=== PATIENT | female | born 1955 | race Caucasian/White ===

== ENCOUNTER → 2017-02-18 | Outpatient (CLI) | payer BC, OTHER ==
--- NOTE | 2017-02-18 15:04 | RAD ---
DATE: February 18, 2017 EXAM: DIGITAL SCREEN BILAT W/CAD HISTORY: Routine screening. COMPARISON: Studies back to February 08, 2014. TECHNIQUE: 2D digital CC and MLO views of each breast were obtained. All 4 views were repeated. This study was interpreted with the benefit of Computerized Aided Detection (CAD). FINDINGS: The breast parenchyma demonstrates scattered fibroglandular densities, category B. Post therapeutic changes in the outer deep right breast are stable. Probable intraparenchymal lymph nodes in the left breast are stable. There is no worrisome mass or area of architectural distortion. There are a few benign-appearing calcifications. There are no suspicious groupings of microcalcifications IMPRESSION: Stable mammogram with benign findings. BI-RADS CATEGORY: 2 BENIGN FINDING RECOMMENDED FOLLOW-UP: 12M 12 MONTH FOLLOW-UP PQRS compliance statement: Patient information was entered into a reminder system with a target due date for the next mammogram. Mammography is a sensitive method for finding small breast cancers, but it does not detect them all and is not a substitute for careful clinical examination. A negative mammogram does not negate a clinically suspicious finding and should not result in delay in biopsying a clinically suspicious abnormality. "Our facility is accredited by the [employer] Mammography Program."
== END | disposition home or self-care (01) ==
LOC: MAMMO 13:48
PROVIDERS: ATTEND Family Medicine
DX: Z12.31 Encounter for screening mammogram for malignant neoplasm of breast (principal)
CPT/HCPCS: G0202; 77067

== ENCOUNTER → 2018-02-20 | Outpatient (CLI) | payer OTHER ==
--- NOTE | 2018-02-21 08:35 | RAD ---
DATE: 02/20/2018 4:00 PM EXAM: MAMMO OBIE SCREENING BILATERAL HISTORY: routine screening evaluation. COMPARISON: Prior mammographic imaging dating back to 02/02/2012 Bilateral CC and MLO views of the breasts were performed. Bilateral breast tomosynthesis was performed in CC and MLO projections. This study was interpreted with the benefit of Computerized Aided Detection (CAD ). Breast Density: The breast parenchyma FINDINGS: Lumpectomy changes are again seen within the right breast. The parenchymal pattern appears stable. A skin marker overlies the right breast denoting the nipple. No suspicious masses, microcalcifications or architectural distortion is present to suggest malignancy in either breast. The visualized axillae are unremarkable. IMPRESSION: No mammographic evidence of malignancy. BI-RADS CATEGORY: 2 BENIGN FINDING(S) RECOMMENDED FOLLOW-UP: 12M 12 MONTH FOLLOW-UP Annual screening mammography is recommended, unless clinically indicated sooner based on symptoms or change in physical exam. PQRS compliance statement: Patient information was entered into a reminder system with a target due date 02/20/2019 for the next mammogram. Mammography is a sensitive method for finding small breast cancers, but it does not detect them all and is not a substitute for careful clinical examination. A negative mammogram does not negate a clinically suspicious finding and should not result in delay in biopsying a clinically suspicious abnormality. "Our facility is accredited by the [employer]ammography [employer]." BEED
== END | disposition home or self-care (01) ==
LOC: MAMMO 13:47
PROVIDERS: ATTEND Family Medicine
DX: Z12.31 Encounter for screening mammogram for malignant neoplasm of breast (principal)
CPT/HCPCS: 77063; 77067

== ENCOUNTER → 2019-02-22 | Outpatient (CLI) | payer OTHER ==
--- NOTE | 2019-02-23 12:18 | RAD ---
DATE: February 22, 2019 EXAM: DIGITAL SCREEN BILAT W/CAD HISTORY: History of right breast cancer treated with lumpectomy and radiation therapy in 2009. COMPARISON: 2015 through 2017 This study was interpreted with the benefit of Computerized Aided Detection (CAD). 2-D digital mammographic views of both breasts were performed in the CC and MLO projections. 3-D digital tomosynthesis images of both breasts were performed in the CC and MLO projections and reviewed on a computer workstation. FINDINGS: Breast Density: FATTY The breast parenchyma is primarily fatty replaced. Breast parenchyma level density A.. Postoperative changes of the right breast are seen. The right breast is stable. Nodularity of the upper-outer quadrant of the left breast is stable. There are no new dominant suspicious masses, suspicious microcalcifications or evidence of architectural distortion. IMPRESSION: No mammographic indicators for new or recurrent malignancy. BI-RADS CATEGORY: 2 BENIGN FINDING RECOMMENDED FOLLOW-UP: 12M 12 MONTH FOLLOW-UP PQRS compliance statement: Patient information was entered into a reminder system with a target due date February 24, 2020 for the next mammogram. Mammography is a sensitive method for finding small breast cancers, but it does not detect them all and is not a substitute for careful clinical examination. A negative mammogram does not negate a clinically suspicious finding and should not result in delay in biopsying a clinically suspicious abnormality. "Our facility is accredited by the [employer] Mammography Program." The patient's breast density may affect the ability of mammography to detect breast cancer. There are 4 categories of breast density, A, B, C and D. Breast density A means that most of the breast tissue is replaced with adipose tissue and therefore is not dense. Breast density B means that the breast tissue is mildly dense and scattered. Breast density C means that the breast tissue is heterogeneously dense. Breast density D means that the breast tissue is very dense. Breast densities especially C and D may decrease the sensitivity of mammography to detect breast cancer. Therefore, the patient may benefit from 3-D breast mammography (3D breast tomography) as a part of their screening mammogram. Insurance may or may not pay for this additional imaging. The patient's breast density based on today's mammogram is category A.
== END | disposition home or self-care (01) ==
LOC: MAMMO 14:34
PROVIDERS: ATTEND Family Medicine
DX: Z12.31 Encounter for screening mammogram for malignant neoplasm of breast (principal); Z85.3 Personal history of malignant neoplasm of breast
CPT/HCPCS: 77067

== ENCOUNTER → 2019-09-06 | Outpatient (CLI) | payer MEDICARE ==
--- NOTE | 2019-09-06 13:24 | KCIC ---
EXAM: DUAL ENERGY X-RAY ABSORPTIOMETRY (DEXA). HISTORY: Postmenopausal screening. FINDINGS: The lowest measured T-score is -0.8 in the left proximal femur, based on a bone mineral density of 0.850 g/cm^2. Refer to the worksheets for full detail. In comparison with the prior study of 04/21/2012, average bone mineral density at the lumbar spine has changed +11.2%, while the average density at the left hip has changed -10.1%. IMPRESSION: Normal. Bone mineral density yields a T-score of -1.0 or greater. Fracture risk is low. FRAX was not calculated. METHODOLOGY: Dual energy x-ray absorptiometry was performed to measure bone mineral density. The following analysis is based on the 2019 Official Positions of the International Society for Clinical Densitometry: Measurements of the hips and the average of L1-L4 are preferred. When the spine and/or hip cannot be feasibly measured or interpreted, or in the setting of hyperparathyroidism, distal radial bone mineral density may be measured. The lumbar spine T-score is based on the average bone mineral density of L1-L4. In the setting of artifact or anatomic abnormality, some lumbar levels may be excluded, and the remaining levels used for calculation. A single lumbar level is not used for diagnosis, and if only a single level is available for assessment, another anatomic site will be used to assign a diagnosis. The hip T-score is based on the bone mineral density measurement of the femoral neck or total proximal femur of either side, whichever is lowest. Bilateral mean values are not used for diagnosis. The forearm T-score is derived from 33% of the distal radius of the nondominant forearm. For postmenopausal and perimenopausal women, and men age 50 or older, of all ethnic groups, T-scores are calculated through comparison of the current measurement with the NHANES III database standard for females aged 20-29 years. The lowest T-score of the evaluated anatomic sites is used to assign a diagnosis based on the World Health Organization densitometric classification. In premenopausal females and males younger than age 50, a Z-score is calculated based on population specific reference data for patient sex and self-reported ethnicity. Electronically signed by: Syed Dominguez MD (09/06/2019 1:21 PM) [facility]
== END ==
LOC: KCIC DEXA 10:55
PROVIDERS: ATTEND Family Medicine
DX: Z13.820 Encounter for screening for osteoporosis (principal)
CPT/HCPCS: 77080

== ENCOUNTER → 2020-02-25 | Outpatient (CLI) | payer MEDICARE ==
--- NOTE | 2020-02-25 16:02 | RAD ---
DATE: 02/25/2020 1:53 PM EXAM: MAMMO OBIE SCREENING BILATERAL HISTORY: Screening . Personal history of right lumpectomy with radiation COMPARISON: 02/22/2019, 02/20/2018. Bilateral CC and MLO views of the breasts were performed. Bilateral breast tomosynthesis was performed in CC and MLO projections. This study was interpreted with the benefit of Computerized Aided Detection (CAD). FINDINGS: Breast Density: FATTY The Breast Parenchyma is primarily fatty replaced. Breast parenchyma level density A. Stable benign postsurgical changes in the right breast. No suspicious masses, microcalcifications or unexpected architectural distortion is present to suggest malignancy in either breast. The visualized axillae are unremarkable. IMPRESSION: No mammographic evidence of malignancy. BI-RADS CATEGORY: 2 BENIGN FINDING(S) RECOMMENDED FOLLOW-UP: 12M 12 MONTH FOLLOW-UP Annual screening mammography is recommended, unless clinically indicated sooner based on symptoms or change in physical exam. PQRS compliance statement: Patient information was entered into a reminder system with a target due date for the next mammogram. Mammography is a sensitive method for finding small breast cancers, but it does not detect them all and is not a substitute for careful clinical examination. A negative mammogram does not negate a clinically suspicious finding and should not result in delay in biopsying a clinically suspicious abnormality. "Our facility is accredited by the [employer] Mammography Program."
== END ==
LOC: MAMMO 13:45
PROVIDERS: ATTEND Family Medicine
DX: Z12.31 Encounter for screening mammogram for malignant neoplasm of breast (principal); Z90.11 Acquired absence of right breast and nipple
CPT/HCPCS: 77063; 77067

== ENCOUNTER → 2020-04-03 | Outpatient (CLI) | payer MEDICARE ==
[~2020-04-03] MED LIST: ALPR0.254 PO; CITA20TA6 PO; MELO15TA23 PO; PRAV40TA2 PO; ZOLP10TA PO
--- NOTE | 2020-04-03 15:34 | KCIC ---
MRI of the lumbar spine without comparison for spinal stenosis of the lumbar region, difficulty stand ing up straight, pain across lower lumbar levels for years. TECHNIQUE: Multiplanar multisequence imaging of the lumbar spine is performed. FINDINGS: There is a degenerative rotolevoscoliosis of the thoracal lumbar junction. Spinal cord term inates at L1. No signal abnormalities are seen within the spinal cord. No significant marrow abnormal ities are evident. No significant abnormalities of the visualized soft tissues. Incidentally noted is 1.4 cm poorly marginated lesion within the right sacral alae seen best on the axial images, which is low signal intensity relative to bone on both T1 and T2-weighted imaging, but high signal intensity on both sequences relative to muscle, and has increased signal intensity on T2-weighted images relati ve T1-weighted imaging. This abnormality is incompletely characterized with these 2 isolated sequence s. This could reflect a benign lesion such as a bone island, atypical hemangioma, or sacral stress re action. Neoplastic process cannot be excluded however. There is grade 1 anterolisthesis of L4 on L5. At T11-12, there is a mild right paracentral disc bulge with no evidence of significant central canal stenosis or neural foraminal narrowing. Moderate facet arthrosis on the left. At T12-L1, there is mild fusiform disc bulge, with no evidence of central canal stenosis or neurofora bubba narrowing. Mild facet arthrosis and ligamentum flavum hypertrophy. At L1-2, there is moderate narrowing of the intervertebral disc, along with a fusiform disc osteophyt e complex with a right paracentral and lateral recess predominance, resulting in severe narrowing of the right neural foramen, with preserved patency of the left foramen. There is mild facet arthrosis a nd ligamentum flavum hypertrophy. Mild effacement of the right anterior thecal sac. At L2-3, there is severe degenerative disc disease with near complete obliteration of the right hemid isc with advanced endplate changes involving the right hemivertebral bodies. There is a fusiform disc osteophyte complex, with moderate narrowing of the right neural foramen and abutment of the exiting nerve root in the far lateral space. There is mild narrowing of the left neural foramen. Once again t here is effacement of the thecal sac without definite canal stenosis. There is moderate facet arthros is and ligamentum flavum hypertrophy. At L3-4, there is a fusiform disc osteophyte complex with effacement of the thecal sac and mild narro wing of the neural foramina bilaterally. Bulky facet arthrosis and moderate ligamentum flavum hypertr ophy. At L4-5, there is grade 1 anterolisthesis, and there is a fusiform disc osteophyte complex which resu lts in severe narrowing of the right neural foramen and mild narrowing of the left neural foramen. Th ere is also bulky facet arthrosis particularly on the right, but also to a lesser extent in the left, and these findings produce moderate central canal stenosis. At L5-S1, there is a fusiform disc bulge which mildly effaces the thecal sac. No central canal stenos is or neuroforaminal narrowing. Moderate facet arthrosis and no significant ligamentum flavum hypertr ophy. IMPRESSION: 1. Severe multilevel degenerative changes of lumbar spine as described above. Findings are most signi ficant at L2-3 with severe disc degeneration and moderate right neural foraminal narrowing and L4-5 w ith moderate canal stenosis and severe right neural foraminal narrowing. 2. 1.4 cm right sacral bone lesion which is incompletely characterized across these limited T1 and T2 -weighted sequences, and is not included on the sagittal series. Considerations include benign etiolo gies such as bone island, atypical hemangioma, or sacral stress reaction, as well as neoplastic etiol ogies. Further evaluation is recommended, and could include noncontrast CT scan of the pelvis, or con trast-enhanced MRI of the sacrum to include STIR, chemical shift, and diffusion-weighted imaging, or both. Electronically signed by: Artemio Hernandez MD (04/03/2020 3:32 PM) [id number]
== END ==
LOC: KCIC MRI 13:00
PROVIDERS: ATTEND Family Medicine
DX: M47.816 Spondylosis without myelopathy or radiculopathy, lumbar region (principal); M43.16 Spondylolisthesis, lumbar region; M48.061 Spinal stenosis, lumbar region without neurogenic claudication
CPT/HCPCS: 72148

== ENCOUNTER 2020-04-10 21:00 | Inpatient (IN) | payer MEDICARE ==
[~2020-04-10] VITALS: Ht 152.4 cm; Wt 72.0 kg
[2020-04-10] MEDS ORDERED: MORPHINE SULFATE 10 MG/ML VIAL. IV ONE ×2 (21:45→23:30)
[2020-04-10] MEDS ORDERED: ONDANSETRON PF 4 MG/2 ML VIAL. IVP ONE (21:45)
[2020-04-10] MEDS ORDERED: IV NORMAL SALINE 1000ML BAG 1,000 ML IV ONE (21:45)
[2020-04-10 22:22] LABS: BASO % 0 % (0-3); EOS % 0 % (0-3); HEMATOCRIT 41.7 % (36.0-47.0); HEMOGLOBIN 14.3 g/dL (12.0-15.5); LYMPH # 0.7 x10^3/uL (1.0-4.8); LYMPH % 9 % (24-48); MEAN CORPUSCULAR HEMOGLOBIN 32 pg (25-35); MEAN CORPUSCULAR HGB CONC 34 g/dL (31-37); MEAN CORPUSCULAR VOLUME 92 fL (79-100); MONO # 0.1 x10^3/uL (0.0-1.1); MONO % 2 % (0-9); NEUT # 6.6 x10^3/uL (1.8-7.7); NEUT % 88 % (31-73); PLATELET COUNT 294 x10^3/uL (140-400); RED BLOOD COUNT 4.51 x10^6/uL (3.50-5.40); WHITE BLOOD COUNT 7.4 x10^3/uL (4.0-11.0)
[2020-04-10 22:30] LABS: CALCIUM 9.6 mg/dL (8.5-10.1); CREATININE 0.7 mg/dL (0.6-1.0); POTASSIUM 3.5 mmol/L (3.5-5.1)
[2020-04-10 22:36] LABS: ALBUMIN 3.8 g/dL (3.4-5.0); ALBUMIN/GLOBULIN RATIO 1.1 (1.0-1.7); TOTAL BILIRUBIN 0.7 mg/dL (0.2-1.0); TOTAL PROTEIN 7.3 g/dL (6.4-8.2)
[2020-04-10 22:56] LABS: BILIRUBIN,URINE NEGATIVE (NEG); CLARITY,URINE CLOUDY; COLOR,URINE YELLOW; NITRITE,URINE NEGATIVE (NEG); PH,URINE 8.5 (<5.0-8.0); PROTEIN,URINE NEGATIVE (NEG-TRACE); UROBILINOGEN,URINE 0.2 mg/dL (0.2 mg/dL)
[2020-04-10] MEDS ORDERED: CONTRAST GIVEN. MC PRN (23:00)
[2020-04-10] MEDS ORDERED: IOHEXOL 240 MG/ML 50ML VIAL. PO ONE (23:00)
[2020-04-10] MEDS ORDERED: IOHEXOL 300 MG/ML 100ML VIAL. IV ONE (23:00)
[2020-04-10 23:05] LABS: BACTERIA,URINE 0 /HPF (0-FEW); HYALINE CASTS, URINE OCCASIONAL /HPF; RBC,URINE 0 /HPF (0-2); WBC,URINE 0 /HPF (0-4)
--- NOTE | 2020-04-10 23:50 | RAD ---
INDICATION: Reason: abdominal pain, elderly / Spl. Instructions: [id number], WILL DRINK CONTRAST AF TER NAUSEA MEDS / History: . COMPARISON: None. TECHNIQUE: Axial CT images obtained through the abdomen and pelvis with contrast. One or more of the following individualized dose reduction techniques were utilized for this examinat ion: 1. Automated exposure control; 2. Adjustment of the mA and/or kV according to patient size; 3 . Use of iterative reconstruction technique. FINDINGS: Calcified granulomas at lung bases. Soft tissue density with central lower density component at the right breast measuring 33 x 20 mm. Moderate calcific atherosclerosis. There is suspected prolapse of the urinary bladder inferiorly. There is some free fluid seen within the abdomen. This includes adjacent to liver. Low-density adjacent to the falciform ligament which can be seen with focal fat. No peripancreatic fluid collection. Splenic calcified granulomas. Subcentimeter low-density bilateral renal lesion. No hydronephrosis. Free fluid within the pelvis. Dilated loops of small bowel are identified which are fluid-filled with adjacent mesenteric edema. Th ere are 2 transition points with one within the lower pelvis and the other within the upper pelvis ju st to left of midline. Wire thickening of the small bowel at the transition points. Degenerative changes the spine with scoliotic curvature as well as multilevel central canal and neura l foraminal stenosis. Small fat-containing umbilical hernia. Anterolisthesis of L4 on 5. IMPRESSION: * Dilated small bowel loops are identified with adjacent mesenteric edema which can be seen with sma ll bowel obstruction. Given the edema and regions of wall thickening this appears high grade and give n that there is 2 transition points a closed-loop is within the differential. There is some free flui d seen as well as possible subcapsular fluid at the liver. * Soft tissue density with central low density component at the right breast. This could be related to the patient's surgery but is better evaluated on mammogram. Please see recently obtained mammogram report for better evaluation of the right breast * Prolapse of urinary bladder inferiorly. Electronically signed by: Salvador Stevenson MD (04/10/2020 11:48 PM) [id number]
[2020-04-11] MEDS ORDERED: PIPERACILLIN/TAZOBACTAM 3.375 GM in IV NORMAL SALINE 50ML 50 ML IV ONE
--- NOTE | 2020-04-11 00:23 | ED.ADGEN ---
Past Medical History Past Medical History: Arthritis, Cancer, Depression, Other Additional Past Medical Histor: BREAST CA Past Surgical History: Cancer Surgery, Hysterectomy Smoking Status: Never Smoker Alcohol Use: None General Adult EDM: Chief Complaint: ABDOMINAL PAIN HPI: HPI: Patient is 64-year-old female who presents to the emergency room complaining of 24 hours of mid abdominal pain that goes into her lower abdomen. She states that this is been constant since onset. She has had nausea and vomiting associated with it. She started having chills earlier this evening but has not had any fevers. She has not been able to keep anything she eats or drinks down. She denies any diarrhea or constipation. She is never had pain like this previously. She had a hysterectomy but no other abdominal surgeries. She states the pain feels like a dull aching pain. It is currently a 10 out of 10. It is worse with eating or drinking. Not worse with palpitation or movement. Review of Systems: Review of Systems: Complete ROS is negative unless otherwise documented in HPI Current Medications: Current Medications Medications (Trade) Dose Ordered Sig/Guy Start Time Stop Time Status Last Admin Dose Admin Info (CONTRAST GIVEN -- Rx MONITORING) 1 each PRN DAILY PRN 04/10/20 23:00 04/12/20 22:59 Iohexol (Omnipaque 240 Mg/ml) 30 ml 1X ONCE 04/10/20 23:00 04/10/20 23:01 DC 04/10/20 23:25 30 ML Iohexol (Omnipaque 300 Mg/ml) 75 ml 1X ONCE 04/10/20 23:00 04/10/20 23:01 DC 04/10/20 23:25 75 ML Morphine Sulfate (Morphine Sulfate) 5 mg 1X ONCE 04/10/20 23:30 04/10/20 23:31 DC 04/10/20 23:37 5 MG Ondansetron HCl (Zofran) 4 mg 1X ONCE 04/10/20 21:45 04/10/20 21:46 DC 04/10/20 22:05 4 MG Sodium Chloride 1,000 ml @ 0 mls/hr Q0M ONCE 04/10/20 21:45 04/10/20 21:46 DC 04/10/20 22:04 999 MLS/HR Allergies: Allergies: Allergies Coded Allergies Type Severity Reaction Last Updated Verified No Known Drug Allergies 04/10/20 No Physical Exam: PE: General: Awake, alert, NAD. Well Nourished, well hydrated. Cooperative HEENT: Atraumatic, EOMI, PERRL, airway patent, moist oral mucosa Neck: Supple, trachea midline Respiratory: CTA bilaterally, normal effort, no wheezing/crackles CV: RRR, no murmur, cap refill <2 GI: Soft, distended, minimally tender MSK: No obvious deformities Skin: Warm, dry, intact Neuro: A&O x3, speech NL, sensory and motor grossly intact, no focal deficits Psych: Normal affect, normal mood, not suicidal or homicidal Current Patient Data: Labs: Laboratory Tests Test 04/10/20 21:55 04/10/20 22:40 White Blood Count 7.4 x10^3/uL (4.0-11.0) Red Blood Count 4.51 x10^6/uL (3.50-5.40) Hemoglobin 14.3 g/dL (12.0-15.5) Hematocrit 41.7 % (36.0-47.0) Mean Corpuscular Volume 92 fL (79-100) Mean Corpuscular Hemoglobin 32 pg (25-35) Mean Corpuscular Hemoglobin Concent 34 g/dL (31-37) Red Cell Distribution Width 13.0 % (11.5-14.5) Platelet Count 294 x10^3/uL (140-400) Neutrophils (%) (Auto) 88 % (31-73) H Lymphocytes (%) (Auto) 9 % (24-48) L Monocytes (%) (Auto) 2 % (0-9) Eosinophils (%) (Auto) 0 % (0-3) Basophils (%) (Auto) 0 % (0-3) Neutrophils # (Auto) 6.6 x10^3/uL (1.8-7.7) Lymphocytes # (Auto) 0.7 x10^3/uL (1.0-4.8) L Monocytes # (Auto) 0.1 x10^3/uL (0.0-1.1) Eosinophils # (Auto) 0.0 x10^3/uL (0.0-0.7) Basophils # (Auto) 0.0 x10^3/uL (0.0-0.2) Platelet Estimate Pending Sodium Level 137 mmol/L (136-145) Potassium Level 3.5 mmol/L (3.5-5.1) Chloride Level 100 mmol/L (98-107) Carbon Dioxide Level 27 mmol/L (21-32) Anion Gap 10 (6-14) Blood Urea Nitrogen 14 mg/dL (7-20) Creatinine 0.7 mg/dL (0.6-1.0) Estimated GFR (Cockcroft-Gault) 84.0 BUN/Creatinine Ratio 20 (6-20) Glucose Level 133 mg/dL (70-99) H Calcium Level 9.6 mg/dL (8.5-10.1) Total Bilirubin 0.7 mg/dL (0.2-1.0) Aspartate Amino Transferase (AST) 29 U/L (15-37) Alanine Aminotransferase (ALT) 25 U/L (14-59) Alkaline Phosphatase 60 U/L (46-116) Total Protein 7.3 g/dL (6.4-8.2) Albumin 3.8 g/dL (3.4-5.0) Albumin/Globulin Ratio 1.1 (1.0-1.7) Lipase 43 U/L (73-393) L Urine Collection Type Unknown Urine Color Yellow Urine Clarity Cloudy Urine pH 8.5 (<5.0-8.0) Urine Specific [place] 1.010 (1.000-1.030) Urine Protein Negative mg/dL (NEG-TRACE) Urine Glucose (UA) Negative mg/dL (NEG) Urine Ketones (Stick) 40 mg/dL (NEG) Urine Blood Negative (NEG) Urine Nitrite Negative (NEG) Urine Bilirubin Negative (NEG) Urine Urobilinogen Dipstick 0.2 mg/dL (0.2 mg/dL) Urine Leukocyte Esterase Negative (NEG) Urine RBC 0 /HPF (0-2) Urine WBC 0 /HPF (0-4) Urine Squamous Epithelial Cells Few /LPF Urine Bacteria 0 /HPF (0-FEW) Urine Hyaline Casts Occasional /HPF Urine Mucus Mod /LPF Laboratory Tests 04/10/20 21:55 Laboratory Tests 04/10/20 21:55 Vital Signs: Vital Signs Date Time Temp Pulse Resp B/P (MAP) Pulse Ox O2 Delivery O2 Flow Rate FiO2 04/10/20 21:15 97.5 68 22 178/79 (112) 97 Room Air 97.5 EKG: EKG: [] Heart Score: Risk Factors: Risk Factors: DM, Current or recent (<one month) smoker, HTN, HLP, family history of CAD, obesity. Risk Scores: Score 0 - 3: 2.5% MACE over next 6 weeks - Discharge Home Score 4 - 6: 20.3% MACE over next 6 weeks - Admit for Clinical Observation Score 7 - 10: 72.7% MACE over next 6 weeks - Early Invasive Strategies Radiology/Procedures: Radiology/Procedures: [] Course & Med Decision Making: Course & Med Decision Making Pertinent Labs and Imaging studies reviewed. (See chart for details) Patient is a 64 year-old female with a history of breast cancer in remission who presents to the Emergency Room complaining of abdominal pain with nausea vomiting. On exam, patient appears to be uncomfortable and has a tender abdomen. Due to patients history, age, and exam work up will need to be done to evaluate for intra-abdominal pathology. Work up ordered includes CBC, CMP, lipase, UA, CT abdomen and pelvis. Patient's pain does not epigastric and a cardiac evaluation will not be needed for atypical pain. Ddx includes colitis, diverticulitis, appendicitis, cholecystitis, pancreatitis, small bowel obstruction, large bowel obstruction, perforated bowel, AAA. Bedside ultrasound was performed by myself to evaluate for possible AAA and aorta appears to be normal on my quick examination. Work up was reviewed and patient has a small bowel obstruction with a possible closed-loop obstruction. Given these results the on-call surgeon was paged. Lactic was added. 0001: Dr Ngo paged after CT a/p results were reviewed 0003: Discussed case with Dr Ngo. Will place NG and do rapid COVID swab. 0010: Attempted to page Dr Fu. Phone line is down. Called house painter helper to see if they have an alternative way of contacting Dr Fu and no other phone numbers were available. 0017: Called Dr Nickie Mccollum's back up, who is willing to accept admission. Silvia Disclaimer: Silvia Disclaimer: This electronic medical record was generated, in whole or in part, using a voice recognition dictation system. Departure Departure Impression: Primary Impression: Small bowel obstruction Disposition: ADMITTED INPT THIS HOSP Condition: STABLE Referrals: JESUS FU MD (PCP) EDMOND JOHN MD Apr 11, 2020 00:23
[2020-04-11] MEDS: IV NORMAL SALINE 1000ML BAG 1,000 ML IV SCH ×3 (00:44→16:51)
[2020-04-11] MEDS ORDERED: BENZOCAINE ONE 20% MUCOSAL SPRAY. MM ×2 (00:45→01:30)
[2020-04-11] MEDS ORDERED: ONDANSETRON PF 4 MG/2 ML VIAL. IV PRN (00:45)
[2020-04-11] MEDS: HYDROmorphone 2 MG/ML VIAL IVP PRN ×4 (00:54→19:34)
--- NOTE | 2020-04-11 02:38 | RAD ---
AP abdomen x-ray HISTORY: Nasogastric tube placement. FINDINGS: Lung bases unremarkable. No dilated bowel loops at the upper abdomen evident. Excreted cont rast density kidneys noted. Nasogastric tube tip left upper quadrant general radiographic region of t he upper stomach. Bones unremarkable. IMPRESSION: Nasogastric intubation as described above. Electronically signed by: Reinaldo Adams MD (04/11/2020 2:35 AM) [facility]
[2020-04-11 03:10] VITALS: BP 131/76
[2020-04-11] MEDS ORDERED: ALPR0.254 PO (03:44)
[2020-04-11] MEDS ORDERED: MELO15TA23 PO (03:44)
[2020-04-11] MEDS ORDERED: ZOLP10TA PO (03:44)
[2020-04-11] MEDS ORDERED: CITA20TA6 PO (03:44)
[2020-04-11] MEDS ORDERED: PRAV40TA2 PO (03:44)
[2020-04-11] MEDS: PHENOL ORAL SPRAY 177ML BOTTLE. PO PRN ×2 (04:20→09:14)
[2020-04-11 04:21] LABS: % BANDS 1 % (0-9); % LYMPHS 10 % (24-48); % MONOS 1 % (0-10); % SEGS 88 % (35-66); PLT ESTIMATE ADEQUATE (ADEQUATE)
[2020-04-11 07:00] VITALS: BP 105/50
--- NOTE | 2020-04-11 08:48 | PDOC2 ---
CHARLEY UMAÑA UPPER STITCHER 04/11/20 0848: CONSULT Date of Consult Date of Consult DATE: 04/11/20 TIME: 08:43 Reason for Consult Reason for Consult: sbo Referring Physician Referring Physician: ER Identification/Chief Complaint Chief Complaint abdominal pain Source Source: Chart review, Patient History of Present Illness Reason for Visit: Admitted with acute onset of abdominal pain yesterday. Progressively worsened, developed vomiting. One loose stool yesterday AM. NO flatus, pain improved, but still present and requiring medication Past Medical History Heme/Onc: Cancer (breast ) Psych: Anxiety, Depression Past Surgical History Past Surgical History: Hysterectomy, Other (lumpectomy) Family History Family History: Other (noncontributory to current illness ) Social History No ALCOHOL: none Drugs: None Lives: Alone Current Problem List Problem List Problems Medical Problems: (1) Small bowel obstruction Status: Acute Current Medications Current Medications Current Medications Ondansetron HCl (Zofran) 4 mg 1X ONCE IVP Last administered on 04/10/20at 22:05; Start 04/10/20 at 21:45; Stop 04/10/20 at 21:46; Status DC Morphine Sulfate (Morphine Sulfate) 5 mg 1X ONCE IV Last administered on 04/10/20at 22:05; Start 04/10/20 at 21:45; Stop 04/10/20 at 21:46; Status DC Sodium Chloride 1,000 ml @ 0 mls/hr Q0M ONCE IV Last administered on 04/10/20at 22:04; Start 04/10/20 at 21:45; Stop 04/10/20 at 21:46; Status DC Iohexol (Omnipaque 240 Mg/ml) 30 ml 1X ONCE PO Last administered on 04/10/20at 23:25; Start 04/10/20 at 23:00; Stop 04/10/20 at 23:01; Status DC Iohexol (Omnipaque 300 Mg/ml) 75 ml 1X ONCE IV Last administered on 04/10/20at 23:25; Start 04/10/20 at 23:00; Stop 04/10/20 at 23:01; Status DC Info (CONTRAST GIVEN -- Rx MONITORING) 1 each PRN DAILY PRN MC SEE COMMENTS; Start 04/10/20 at 23:00; Stop 04/12/20 at 22:59 Morphine Sulfate (Morphine Sulfate) 5 mg 1X ONCE IV Last administered on 04/10/20at 23:37; Start 04/10/20 at 23:30; Stop 04/10/20 at 23:31; Status DC Piperacillin Sod/ Tazobactam Sod 3.375 gm/Sodium Chloride 50 ml @ 100 mls/hr 1X ONCE IV Last administered on 04/11/20at 00:44; Start 04/11/20 at 00:00; Stop 04/11/20 at 00:29; Status DC Ondansetron HCl (Zofran) 4 mg PRN Q8HRS PRN IV NAUSEA/VOMITING; Start 04/11/20 at 00:45; Stop 04/12/20 at 00:44 Sodium Chloride 1,000 ml @ 125 mls/hr Q8H IV Last administered on 04/11/20at 08:16; Start 04/11/20 at 00:45; Stop 04/12/20 at 00:44 Hydromorphone HCl (Dilaudid) 0.5 mg PRN Q4HRS PRN IVP SEVERE PAIN 7-10 Last ad ministered on 04/11/20at 08:28; Start 04/11/20 at 00:45 Benzocaine (Hurricaine One) 1 spray 1X ONCE MM Last administered on 04/11/20at 00:53; Start 04/11/20 at 00:45; Stop 04/11/20 at 00:46; Status DC Benzocaine (Hurricaine One) 1 spray 1X ONCE MM Last administered on 04/11/20at 01:28; Start 04/11/20 at 01:30; Stop 04/11/20 at 01:31; Status DC Phenol (Chloraseptic) 1 spray PRN Q2HR PRN PO SORE THROAT Last administered on 04/11/20at 04:20; Start 04/11/20 at 03:15 Active Scripts Active Reported Alprazolam 0.25 Mg Tablet 1 Tab PO DAILY Pravastatin Sodium 40 Mg Tablet 1 Tab PO QHS Citalopram Hbr (Citalopram Hydrobromide) 20 Mg Tablet 1 Tab PO DAILY Ambien (Zolpidem Tartrate) 10 Mg Tablet 0.5 Tab PO PRN QHS PRN Meloxicam 15 Mg Tablet 1 Tab PO DAILY Allergies Allergies: Coded Allergies: No Known Drug Allergies (Unverified , 04/10/20) ROS General: YES: Chills; No: Other (fevers ) PSYCHOLOGICAL ROS: No: Anxiety, Depression Eyes: No Blurry vision, No Double vision HEENT: No: Heacaches, Sore Throat Hematological and Lymphatic: YES: Brusing; No: Bleeding Problems, Blood Clots Respiratory: No: Cough, Shortness of breath Cardiovascular: No Chest Pain, No Palpitations Gastrointestinal: Yes Other (see hpi) Genitourinary: No Dysuria, No Hematuria Musculoskeletal: No Joint Pain, No Muscle Pain Neurological: No Impaired Coord/balance, No Numbness/Tingling Skin: No Pruritus, No Rash Physical Exam General: Alert, Oriented X3, Cooperative HEENT: Atraumatic, Other (ng in place) Lungs: Clear to auscultation, Normal air movement Heart: Regular rate, Normal S1, Normal S2 Abdomen: Soft, No tenderness, Other (ND) Extremities: No clubbing, No cyanosis Skin: No rashes, No breakdown Neuro: Normal gait, Normal speech Psych/Mental Status: Mental status NL, Mood NL MUSCULOSKELETAL: No deformity, No swelling Vitals VITALS Vital Signs Date Time Temp Pulse Resp B/P (MAP) Pulse Ox O2 Delivery O2 Flow Rate FiO2 04/11/20 08:28 Room Air 04/11/20 07:00 98.7 69 17 105/50 (68) 93 98.7 Labs Labs Laboratory Tests Test 04/10/20 21:55 04/10/20 22:40 04/11/20 00:11 White Blood Count 7.4 x10^3/uL (4.0-11.0) Red Blood Count 4.51 x10^6/uL (3.50-5.40) Hemoglobin 14.3 g/dL (12.0-15.5) Hematocrit 41.7 % (36.0-47.0) Mean Corpuscular Volume 92 fL (79-100) Mean Corpuscular Hemoglobin 32 pg (25-35) Mean Corpuscular Hemoglobin Concent 34 g/dL (31-37) Red Cell Distribution Width 13.0 % (11.5-14.5) Platelet Count 294 x10^3/uL (140-400) Neutrophils (%) (Auto) 88 % (31-73) Lymphocytes (%) (Auto) 9 % (24-48) Monocytes (%) (Auto) 2 % (0-9) Eosinophils (%) (Auto) 0 % (0-3) Basophils (%) (Auto) 0 % (0-3) Neutrophils # (Auto) 6.6 x10^3/uL (1.8-7.7) Lymphocytes # (Auto) 0.7 x10^3/uL (1.0-4.8) Monocytes # (Auto) 0.1 x10^3/uL (0.0-1.1) Eosinophils # (Auto) 0.0 x10^3/uL (0.0-0.7) Basophils # (Auto) 0.0 x10^3/uL (0.0-0.2) Segmented Neutrophils % 88 % (35-66) Band Neutrophils % 1 % (0-9) Lymphocytes % 10 % (24-48) Monocytes % 1 % (0-10) Platelet Estimate Adequate (ADEQUATE) Sodium Level 137 mmol/L (136-145) Potassium Level 3.5 mmol/L (3.5-5.1) Chloride Level 100 mmol/L (98-107) Carbon Dioxide Level 27 mmol/L (21-32) Anion Gap 10 (6-14) Blood Urea Nitrogen 14 mg/dL (7-20) Creatinine 0.7 mg/dL (0.6-1.0) Estimated GFR (Cockcroft-Gault) 84.0 BUN/Creatinine Ratio 20 (6-20) Glucose Level 133 mg/dL (70-99) Lactic Acid Level 1.6 mmol/L (0.4-2.0) Calcium Level 9.6 mg/dL (8.5-10.1) Total Bilirubin 0.7 mg/dL (0.2-1.0) Aspartate Amino Transf (AST/SGOT) 29 U/L (15-37) Alanine Aminotransferase (ALT/SGPT) 25 U/L (14-59) Alkaline Phosphatase 60 U/L (46-116) Total Protein 7.3 g/dL (6.4-8.2) Albumin 3.8 g/dL (3.4-5.0) Albumin/Globulin Ratio 1.1 (1.0-1.7) Lipase 43 U/L (73-393) Urine Collection Type Unknown Urine Color Yellow Urine Clarity Cloudy Urine pH 8.5 (<5.0-8.0) Urine Specific [place] 1.010 (1.000-1.030) Urine Protein Negative mg/dL (NEG-TRACE) Urine Glucose (UA) Negative mg/dL (NEG) Urine Ketones (Stick) 40 mg/dL (NEG) Urine Blood Negative (NEG) Urine Nitrite Negative (NEG) Urine Bilirubin Negative (NEG) Urine Urobilinogen Dipstick 0.2 mg/dL (0.2 mg/dL) Urine Leukocyte Esterase Negative (NEG) Urine RBC 0 /HPF (0-2) Urine WBC 0 /HPF (0-4) Urine Squamous Epithelial Cells Few /LPF Urine Bacteria 0 /HPF (0-FEW) Urine Hyaline Casts Occasional /HPF Urine Mucus Mod /LPF SARS-CoV-2 Antigen (Rapid) Negative (NEGATIVE) Laboratory Tests Test 04/10/20 21:55 04/10/20 22:40 04/11/20 00:11 White Blood Count 7.4 x10^3/uL (4.0-11.0) Red Blood Count 4.51 x10^6/uL (3.50-5.40) Hemoglobin 14.3 g/dL (12.0-15.5) Hematocrit 41.7 % (36.0-47.0) Mean Corpuscular Volume 92 fL (79-100) Mean Corpuscular Hemoglobin 32 pg (25-35) Mean Corpuscular Hemoglobin Concent 34 g/dL (31-37) Red Cell Distribution Width 13.0 % (11.5-14.5) Platelet Count 294 x10^3/uL (140-400) Neutrophils (%) (Auto) 88 % (31-73) Lymphocytes (%) (Auto) 9 % (24-48) Monocytes (%) (Auto) 2 % (0-9) Eosinophils (%) (Auto) 0 % (0-3) Basophils (%) (Auto) 0 % (0-3) Neutrophils # (Auto) 6.6 x10^3/uL (1.8-7.7) Lymphocytes # (Auto) 0.7 x10^3/uL (1.0-4.8) Monocytes # (Auto) 0.1 x10^3/uL (0.0-1.1) Eosinophils # (Auto) 0.0 x10^3/uL (0.0-0.7) Basophils # (Auto) 0.0 x10^3/uL (0.0-0.2) Segmented Neutrophils % 88 % (35-66) Band Neutrophils % 1 % (0-9) Lymphocytes % 10 % (24-48) Monocytes % 1 % (0-10) Platelet Estimate Adequate (ADEQUATE) Sodium Level 137 mmol/L (136-145) Potassium Level 3.5 mmol/L (3.5-5.1) Chloride Level 100 mmol/L (98-107) Carbon Dioxide Level 27 mmol/L (21-32) Anion Gap 10 (6-14) Blood Urea Nitrogen 14 mg/dL (7-20) Creatinine 0.7 mg/dL (0.6-1.0) Estimated GFR (Cockcroft-Gault) 84.0 BUN/Creatinine Ratio 20 (6-20) Glucose Level 133 mg/dL (70-99) Lactic Acid Level 1.6 mmol/L (0.4-2.0) Calcium Level 9.6 mg/dL (8.5-10.1) Total Bilirubin 0.7 mg/dL (0.2-1.0) Aspartate Amino Transf (AST/SGOT) 29 U/L (15-37) Alanine Aminotransferase (ALT/SGPT) 25 U/L (14-59) Alkaline Phosphatase 60 U/L (46-116) Total Protein 7.3 g/dL (6.4-8.2) Albumin 3.8 g/dL (3.4-5.0) Albumin/Globulin Ratio 1.1 (1.0-1.7) Lipase 43 U/L (73-393) Urine Collection Type Unknown Urine Color Yellow Urine Clarity Cloudy Urine pH 8.5 (<5.0-8.0) Urine Specific [place] 1.010 (1.000-1.030) Urine Protein Negative mg/dL (NEG-TRACE) Urine Glucose (UA) Negative mg/dL (NEG) Urine Ketones (Stick) 40 mg/dL (NEG) Urine Blood Negative (NEG) Urine Nitrite Negative (NEG) Urine Bilirubin Negative (NEG) Urine Urobilinogen Dipstick 0.2 mg/dL (0.2 mg/dL) Urine Leukocyte Esterase Negative (NEG) Urine RBC 0 /HPF (0-2) Urine WBC 0 /HPF (0-4) Urine Squamous Epithelial Cells Few /LPF Urine Bacteria 0 /HPF (0-FEW) Urine Hyaline Casts Occasional /HPF Urine Mucus Mod /LPF SARS-CoV-2 Antigen (Rapid) Negative (NEGATIVE) Assessment/Plan Assessment/Plan SBO CT concern for possible closed loop obstruction will plan for SBFT ELYSE GALLARDO MD 04/11/20 0930: CONSULT Assessment/Plan Assessment/Plan Patient seen and examined by me currently resting fairly comfortably in bed denying pain. NG tube in place mostly clear nonbilious output. Abdomen is soft nondistended nontender to palpation. CT scan reviewed. Agree with Dumont assessment and plan for small bowel follow-through CHARLEY UMAÑA APRN Apr 11, 2020 08:48 ELYSE GALLARDO MD Apr 11, 2020 09:30
[2020-04-11] MEDS ORDERED: IOHEXOL 300 MG/ML 100ML VIAL. PO ONE (09:30)
--- NOTE | 2020-04-11 09:33 | NUR ---
SW following. Discussed with RN, pt from home, room air, NPO, rapid COVID-19 negative, NG tube. Plans for a small bowel follow through. RN advised no SW needs at this time. SW will continue to follow.
--- NOTE | 2020-04-11 09:38 | HP ---
ADMIT DATE: 04/11/2020 CHIEF COMPLAINT AND HISTORY OF PRESENT ILLNESS: This 64-year-old white female is well known to me from followup in the office. The patient developed abdominal pain on the morning of the . It was associated with nausea and vomiting. She eventually presented to the Emergency Room where she was found to have a high-grade small-bowel obstruction, admitted with NG tube placement. PAST MEDICAL HISTORY: Remarkable for prior breast cancer, arthritis and depression. PAST SURGICAL HISTORY: Remarkable for prior mastectomy and hysterectomy. MEDICATIONS: Brought with the patient, listed on computer and have been addressed. ALLERGIES: She has no known drug allergies. SOCIAL HISTORY: She is a lifetime nonsmoker, nondrinker, does not abuse drugs. , lives at home with her . FAMILY HISTORY: Noncontributory. REVIEW OF SYSTEMS: Remarkable for that as mentioned above. In addition, she has not had a bowel movement since this started. She denies any fevers, chills or hematemesis. PHYSICAL EXAMINATION: GENERAL: She is well-developed, well-nourished white female with NG in place and appears comfortable. She states she still has abdominal pain and has not passed any flatus or stool since admission. HEAD, EYES, EARS, NOSE AND THROAT: Unremarkable other than the NG tube. NECK: Supple without adenopathy or thyromegaly. CHEST: Clear to auscultation. HEART: Regular rate and rhythm without S3, S4 or murmur. ABDOMEN: Soft with some occasional rashes. EXTREMITIES: Without cyanosis, clubbing or edema. NEUROLOGIC: She is intact. LABORATORY DATA: Initial laboratory is remarkable for essentially normal CBC with a slight left shift. She had a blood sugar of 133 on her chem panel. Urinalysis is unremarkable. Rapid COVID testing is negative. IMAGING: Includes a KUB and abdominal pelvis CT showing small-bowel obstruction. IMPRESSION: 1. Small-bowel obstruction. 2. Other problems listed above. PLAN: Surgical consultation. We will observe at this point for hopefully spontaneous clearing of the same, but will need to be surgery available if needed a small bowel follow through ordered by Surgery this morning. We will be interesting to see what that shows. JESUS CASTILLO MD DR: LORRAINE/enrico JOB#: [id number] / [id number]
[2020-04-11 11:00] VITALS: BP 122/57
[2020-04-11 15:00] VITALS: BP 92/54
--- NOTE | 2020-04-11 16:41 | RAD ---
EXAM: SMALL BOWEL FOLLOW-THROUGH. HISTORY: Small bowel obstruction. COMPARISON: Abdomen pelvis CT with oral contrast of 04/10/2020. FINDINGS: A field reimbursement manager image was obtained. Water-soluble contrast material was administered via an indwell ing enteric tube and followed in its course through the stomach, small bowel and proximal colon with plain radiographs. 0 fluoroscopic images were obtained. Fluoroscopy time 0 seconds. The field reimbursement manager image demonstrates a some residual contrast in the collapsed urinary bladder. Residual wate r-soluble enteric contrast from the CT scan of the day prior is diffusely present in the small bowel. The administered enteric contrast gradually opacifies dilated small bowel loops with no opacification of the cecum identified after 2 hours of imaging. No strictures are seen. However no opacification o f large bowel was identified after 2 hours at which point, the study was terminated. IMPRESSION: 1. Small bowel obstruction with no opacification of large bowel after 2 hours following enteric contr ast administration. No evidence of bowel perforation. 2. Incidental urinary bladder prolapse. Electronically signed by: Linda Awad MD (04/11/2020 4:39 PM) [id number]
[2020-04-11 19:00] VITALS: BP 140/67
[2020-04-11 23:00] VITALS: BP 128/64
[2020-04-12] VITALS (13 sets, daily range): BP systolic 113–144; BP diastolic 50–68
[2020-04-12] MEDS: IV NORMAL SALINE 1000ML BAG 1,000 ML IV SCH ×3 (03:21→22:19)
[2020-04-12] MEDS: HYDROmorphone 2 MG/ML VIAL IVP PRN (04:25)
--- NOTE | 2020-04-12 07:36 | RAD ---
Supine abdomen. Small bowel obstruction Supine view was taken of the abdomen. There is an NG tube in the stomach. There is contrast at the fu ndus of the stomach. There is contrast throughout dilated loops of small bowel consistent with a smal l bowel obstruction. Contrast is not identified in the colon. IMPRESSION: 1. Dilated small bowel consistent with small bowel obstruction. Electronically signed by: Nathen Granados MD (04/12/2020 7:34 AM) [facility]
--- NOTE | 2020-04-12 10:02 | PDOC ---
PROGRESS NOTES Date of Service DATE: 04/12/20 TIME: 10:01 Subjective Subjective mild pain, but improved from presentation; no flatus or stool Objective Objective Vital Signs Date Time Temp Pulse Resp B/P (MAP) Pulse Ox O2 Delivery O2 Flow Rate FiO2 04/12/20 08:00 Room Air 04/12/20 07:28 98.1 74 18 113/59 (77) 90 98.1 Intake and Output 04/12/20 07:00 Intake Total 1000 ml Output Total 875 ml Balance 125 ml Intake Oral 0 ml IV Total 1000 ml Output Gastric Drainage Total 875 ml # Voids 4 Physical Exam Abdomen: Soft, No tenderness General: Alert, Oriented X3 Lungs: Clear to auscultation Psych/Mental Status: Mental status NL Assessment Assessment Problems Medical Problems: (1) Small bowel obstruction Status: Acute Plan Plan of Care SBS shows continued obstruction; recommend surgical intervention. I reviewed plans for laparoscopy possible laparotomy with the patient. The details and risks of surgery were discussed. She understands and would like to proceed. Comment Review of Relevant I have reviewed the following items johnna (where applicable) has been applied. Labs Laboratory Tests Test 04/10/20 21:55 04/10/20 22:40 04/11/20 00:11 White Blood Count 7.4 x10^3/uL (4.0-11.0) Red Blood Count 4.51 x10^6/uL (3.50-5.40) Hemoglobin 14.3 g/dL (12.0-15.5) Hematocrit 41.7 % (36.0-47.0) Mean Corpuscular Volume 92 fL (79-100) Mean Corpuscular Hemoglobin 32 pg (25-35) Mean Corpuscular Hemoglobin Concent 34 g/dL (31-37) Red Cell Distribution Width 13.0 % (11.5-14.5) Platelet Count 294 x10^3/uL (140-400) Neutrophils (%) (Auto) 88 % (31-73) Lymphocytes (%) (Auto) 9 % (24-48) Monocytes (%) (Auto) 2 % (0-9) Eosinophils (%) (Auto) 0 % (0-3) Basophils (%) (Auto) 0 % (0-3) Neutrophils # (Auto) 6.6 x10^3/uL (1.8-7.7) Lymphocytes # (Auto) 0.7 x10^3/uL (1.0-4.8) Monocytes # (Auto) 0.1 x10^3/uL (0.0-1.1) Eosinophils # (Auto) 0.0 x10^3/uL (0.0-0.7) Basophils # (Auto) 0.0 x10^3/uL (0.0-0.2) Segmented Neutrophils % 88 % (35-66) Band Neutrophils % 1 % (0-9) Lymphocytes % 10 % (24-48) Monocytes % 1 % (0-10) Platelet Estimate Adequate (ADEQUATE) Sodium Level 137 mmol/L (136-145) Potassium Level 3.5 mmol/L (3.5-5.1) Chloride Level 100 mmol/L (98-107) Carbon Dioxide Level 27 mmol/L (21-32) Anion Gap 10 (6-14) Blood Urea Nitrogen 14 mg/dL (7-20) Creatinine 0.7 mg/dL (0.6-1.0) Estimated GFR (Cockcroft-Gault) 84.0 BUN/Creatinine Ratio 20 (6-20) Glucose Level 133 mg/dL (70-99) Lactic Acid Level 1.6 mmol/L (0.4-2.0) Calcium Level 9.6 mg/dL (8.5-10.1) Total Bilirubin 0.7 mg/dL (0.2-1.0) Aspartate Amino Transf (AST/SGOT) 29 U/L (15-37) Alanine Aminotransferase (ALT/SGPT) 25 U/L (14-59) Alkaline Phosphatase 60 U/L (46-116) Total Protein 7.3 g/dL (6.4-8.2) Albumin 3.8 g/dL (3.4-5.0) Albumin/Globulin Ratio 1.1 (1.0-1.7) Lipase 43 U/L (73-393) Urine Collection Type Unknown Urine Color Yellow Urine Clarity Cloudy Urine pH 8.5 (<5.0-8.0) Urine Specific [place] 1.010 (1.000-1.030) Urine Protein Negative mg/dL (NEG-TRACE) Urine Glucose (UA) Negative mg/dL (NEG) Urine Ketones (Stick) 40 mg/dL (NEG) Urine Blood Negative (NEG) Urine Nitrite Negative (NEG) Urine Bilirubin Negative (NEG) Urine Urobilinogen Dipstick 0.2 mg/dL (0.2 mg/dL) Urine Leukocyte Esterase Negative (NEG) Urine RBC 0 /HPF (0-2) Urine WBC 0 /HPF (0-4) Urine Squamous Epithelial Cells Few /LPF Urine Bacteria 0 /HPF (0-FEW) Urine Hyaline Casts Occasional /HPF Urine Mucus Mod /LPF Coronavirus (PCR) Not detected (Not Detected) SARS-CoV-2 Antigen (Rapid) Negative (NEGATIVE) Microbiology 04/11/20 Blood Culture - Preliminary, Resulted NO GROWTH AFTER 1 DAY Medications Current Medications Ondansetron HCl (Zofran) 4 mg 1X ONCE IVP Last administered on 04/10/20at 22:05; Start 04/10/20 at 21:45; Stop 04/10/20 at 21:46; Status DC Morphine Sulfate (Morphine Sulfate) 5 mg 1X ONCE IV Last administered on 04/10/20at 22:05; Start 04/10/20 at 21:45; Stop 04/10/20 at 21:46; Status DC Sodium Chloride 1,000 ml @ 0 mls/hr Q0M ONCE IV Last administered on 04/10/20at 22:04; Start 04/10/20 at 21:45; Stop 04/10/20 at 21:46; Status DC Iohexol (Omnipaque 240 Mg/ml) 30 ml 1X ONCE PO Last administered on 04/10/20at 23:25; Start 04/10/20 at 23:00; Stop 04/10/20 at 23:01; Status DC Iohexol (Omnipaque 300 Mg/ml) 75 ml 1X ONCE IV Last administered on 04/10/20at 23:25; Start 04/10/20 at 23:00; Stop 04/10/20 at 23:01; Status DC Info (CONTRAST GIVEN -- Rx MONITORING) 1 each PRN DAILY PRN MC SEE COMMENTS; Start 04/10/20 at 23:00; Stop 04/12/20 at 22:59 Morphine Sulfate (Morphine Sulfate) 5 mg 1X ONCE IV Last administered on 04/10/20at 23:37; Start 04/10/20 at 23:30; Stop 04/10/20 at 23:31; Status DC Piperacillin Sod/ Tazobactam Sod 3.375 gm/Sodium Chloride 50 ml @ 100 mls/hr 1X ONCE IV Last administered on 04/11/20at 00:44; Start 04/11/20 at 00:00; Stop 04/11/20 at 00:29; Status DC Ondansetron HCl (Zofran) 4 mg PRN Q8HRS PRN IV NAUSEA/VOMITING Last administe red on 04/11/20at 14:02; Start 04/11/20 at 00:45; Stop 04/12/20 at 00:44; Status DC Sodium Chloride 1,000 ml @ 125 mls/hr Q8H IV Last administered on 04/11/20at 16:51; Start 04/11/20 at 00:45; Stop 04/12/20 at 00:44; Status DC Hydromorphone HCl (Dilaudid) 0.5 mg PRN Q4HRS PRN IVP SEVERE PAIN 7-10 Last administered on 04/12/20at 04:25; Start 04/11/20 at 00:45 Benzocaine (Hurricaine One) 1 spray 1X ONCE MM Last administered on 04/11/20at 00:53; Start 04/11/20 at 00:45; Stop 04/11/20 at 00:46; Status DC Benzocaine (Hurricaine One) 1 spray 1X ONCE MM Last administered on 04/11/20at 01:28; Start 04/11/20 at 01:30; Stop 04/11/20 at 01:31; Status DC Phenol (Chloraseptic) 1 spray PRN Q2HR PRN PO SORE THROAT Last administered on 04/11/20at 09:14; Start 04/11/20 at 03:15 Iohexol (Omnipaque 300 Mg/ml) 400 ml 1X ONCE PO ; Start 04/11/20 at 09:30; Stop 04/11/20 at 09:31; Status DC Sodium Chloride 1,000 ml @ 125 mls/hr Q8H IV Last administered on 04/12/20at 03:21; Start 04/12/20 at 03:15 Active Scripts Active Reported Alprazolam 0.25 Mg Tablet 1 Tab PO DAILY Pravastatin Sodium 40 Mg Tablet 1 Tab PO QHS Citalopram Hbr (Citalopram Hydrobromide) 20 Mg Tablet 1 Tab PO DAILY Ambien (Zolpidem Tartrate) 10 Mg Tablet 0.5 Tab PO PRN QHS PRN Meloxicam 15 Mg Tablet 1 Tab PO DAILY Vitals/I & O Vital Sign - Last 24 Hours 04/11/20 04/11/20 04/11/20 04/11/20 11:00 13:48 14:25 15:00 Temp 97.9 98.2 97.9 98.2 Pulse 66 67 Resp 17 17 B/P (MAP) 122/57 (78) 92/54 (67) Pulse Ox 90 94 O2 Delivery Room Air Room Air Room Air Room Air 04/11/20 04/11/20 04/11/20 04/11/20 19:00 19:30 19:34 20:04 Temp 98.1 98.1 Pulse 73 Resp 18 20 18 B/P (MAP) 140/67 (91) Pulse Ox 90 O2 Delivery Room Air Room Air Room Air Room Air 04/11/20 04/12/20 04/12/20 04/12/20 23:00 03:00 04:25 04:55 Temp 98.4 98.4 Pulse 75 75 Resp 18 18 20 20 B/P (MAP) 128/64 (85) 128/51 (76) Pulse Ox 91 93 O2 Delivery Room Air Room Air Room Air Room Air 04/12/20 04/12/20 07:28 08:00 Temp 98.1 98.1 Pulse 74 Resp 18 B/P (MAP) 113/59 (77) Pulse Ox 90 O2 Delivery Room Air Room Air Intake and Output 04/11/20 04/11/20 04/12/20 15:00 23:00 07:00 Intake Total 0 ml 1000 ml Output Total 600 ml 275 ml Balance -600 ml 725 ml Justifications for Admission Other Justification CRIS HANSEN MD Apr 12, 2020 10:02
[2020-04-12] MEDS ORDERED: PHENYLEPHRINE in 0.9% NACL PF 1 MG/10 ML SYRINGE. IV ONE (10:06)
[2020-04-12] MEDS ORDERED: ONDANSETRON PF 4 MG/2 ML VIAL. ONE (10:06)
[2020-04-12] MEDS ORDERED: ePHEDrine PF IN SALINE 50 MG/10 ML SYRINGE. IV ONE (10:06)
[2020-04-12] MEDS ORDERED: LIDOCAINE 2% PF 5 ML VIAL. ONE (10:06)
[2020-04-12] MEDS ORDERED: DEXAMETHASONE SOD PHOS 20 MG/5 ML VIAL. ONE (10:06)
[2020-04-12] MEDS ORDERED: PROPOFOL 10 MG/ML (20ML) VIAL. IV ONE (10:06)
[2020-04-12] MEDS ORDERED: SUCCINYLCHOLINE 200 MG/10 ML VIAL. ONE (10:07)
[2020-04-12] MEDS ORDERED: ROCURONIUM 50 MG/5 ML VIAL. ONE (10:07)
[2020-04-12] MEDS ORDERED: fentaNYL PF VIAL 100 MCG/2 ML VIAL ONE (10:07)
[2020-04-12] MEDS ORDERED: PROCHLORPERAZINE 10 MG/2 ML VIAL. IVP PRN (10:30)
[2020-04-12] MEDS ORDERED: fentaNYL PF VIAL 100 MCG/2 ML VIAL IVP PRN ×2 (10:30)
[2020-04-12] MEDS ORDERED: HYDROmorphone 2 MG/ML VIAL IVP PRN (10:30)
[2020-04-12] MEDS: IV RINGERS,LACTATED 1000ML 1,000 ML IV SCH ×2 (10:30→12:38)
[2020-04-12] MEDS ORDERED: MORPHINE SULFATE 2 MG/ML VIAL. IVP PRN (10:30)
[2020-04-12] MEDS ORDERED: BUPIVACAINE MPF 0.5% 30 ML VIAL. ONE (10:38)
[2020-04-12] MEDS ORDERED: ceFAZolin SODIUM IV Push 1 GM VIAL. IVP ONE (10:52)
[2020-04-12] MEDS ORDERED: SEVOFLURANE 61 TO 120 MINUTES. IH ONE (11:37)
[2020-04-12] MEDS ORDERED: GLYCOPYRROLATE 1 MG/5 ML VIAL. ONE (11:48)
[2020-04-12] MEDS ORDERED: NEOSTIGMINE METHYLSULFATE 5 MG/5 ML SYRINGE. ONE (11:49)
--- NOTE | 2020-04-12 12:15 | PDOC4 ---
Operative Note Operative Note Operative Note: Preoperative Diagnosis: Small bowel obstruction Postoperative Diagnosis: Same Procedure: Laparoscopic lysis of adhesions, release of small bowel obstruction Surgeon: [employer] Specialist: Luca LEE Anesthesia: General EBL: 10 mL Specimen: None Drains: None Complications: None Indication: The patient is a 64-year-old female who was admitted with abdominal pain. Her evaluation has revealed a high-grade small bowel obstruction. The plan is to proceed with surgical intervention to relieve the obstruction. The risks of surgery were discussed which include bleeding, infection, anastomotic leak, pain, visceral injury, anesthetic risk, potential need for additional surgery or procedure. She understands and would like to proceed. Description: The patient was taken to the operating room and placed supine in the operating table. General anesthesia was performed. The abdomen was prepped with ChloraPrep and draped in a standard surgical manner. A small incision was made in the left upper quadrant through which a visualized 5 mm trocar was inserted. Pneumoperitoneum was created and the laparoscope was introduced. In the left lateral abdomen two 5 mm trochars were inserted. Initial inspection showed some free fluid in the pelvis. There were both segments of dilated obstructive small bowel and decompressed bowel. We began following the decompressed bowel and in a short amount of time identified the source of obst ruction. In the left lower quadrant there was an adhesion forming an internal hernia with a knuckle of obstructed small bowel. There was inflammatory change of the serosa however the intestine appeared viable. With sharp dissection the adhesion was lysed. Some additional lysis was performed on the adhesions of the omentum to the small bowel. The obstructed bowel was then inspected and its color began to immediately improve. No other abnormalities were noted. The pneumoperitoneum was relieved and the laparoscopic ports were removed. The skin was approximated with 4-0 Monocryl and Band-Aids were applied. The patient tolerated the procedure well and was sent to the recovery room in stable condition. At the end of the case all counts were correct. CRIS HANSEN MD Apr 12, 2020 12:15
--- NOTE | 2020-04-12 17:23 | PN ---
DATE: 04/12/2020 LOCATION: She is room 512. SUBJECTIVE: This 64-year-old white female remains hospitalized with small-bowel obstruction. She has an NG tube in place, still complains of some abdominal pain, although it has decreased and denies any stool or flatus today. OBJECTIVE: VITAL SIGNS: Stable. She is afebrile. CHEST: Clear. HEART: Regular. ABDOMEN: Soft. DIAGNOSTIC DATA: KUB shows ongoing evidence of small-bowel obstruction this morning, ASSESSMENT: Small bowel obstruction. PLAN: Continue hydration and hopes that this is self-resolving. Surgery is following along with his papers so we ____ are not getting better, we will need surgical intervention. JESUS CASTILLO MD DR: LORRAINE/enrico JOB#: [id number] / [id number]
[2020-04-13 03:00] VITALS: BP 107/46
[2020-04-13] MEDS: IV NORMAL SALINE 1000ML BAG 1,000 ML IV SCH ×3 (06:49→20:53)
[2020-04-13 07:00] VITALS: BP 116/54
--- NOTE | 2020-04-13 09:15 | PDOC ---
Provider Note Date of Service: DATE: 04/13/20 TIME: 09:11 Provider Note vss, low grade temp, will check bmp re K+, add IS to orders- lungs sound clear, had a stool 2/6 Justifications for Admission Other Justification NICKI HERNÁNDEZ MD Apr 13, 2020 09:15
[2020-04-13 11:07] VITALS: BP 129/63
[2020-04-13 11:45] LABS: CALCIUM 8.6 mg/dL (8.5-10.1); CREATININE 0.5 mg/dL (0.6-1.0); GFR 123.8; POTASSIUM 3.5 mmol/L (3.5-5.1)
--- NOTE | 2020-04-13 12:13 | PDOC ---
PROGRESS NOTES Date of Service DATE: 04/13/20 TIME: 12:12 Subjective Subjective feeling "much better", passing gas and stool Objective Objective Vital Signs Date Time Temp Pulse Resp B/P (MAP) Pulse Ox O2 Delivery O2 Flow Rate FiO2 04/13/20 11:07 97.9 85 20 129/63 (85) 97 Room Air 97.9 04/12/20 13:14 2 Intake and Output 04/13/20 07:00 Intake Total 6973 ml Output Total 110 ml Balance 6863 ml Intake Oral 0 ml IV Total 6973 ml Output Urine Total 100 ml Estimated Blood Loss 10 ml # Voids 7 # Bowel Movements 1 Physical Exam Abdomen: Soft, No tenderness Assessment Assessment Problems Medical Problems: (1) Small bowel obstruction Status: Acute Plan Plan of Care DC NG, clear liquids Comment Review of Relevant I have reviewed the following items johnna (where applicable) has been applied. Labs Laboratory Tests Test 04/13/20 10:47 Sodium Level 146 mmol/L (136-145) Potassium Level 3.5 mmol/L (3.5-5.1) Chloride Level 110 mmol/L (98-107) Carbon Dioxide Level 28 mmol/L (21-32) Anion Gap 8 (6-14) Blood Urea Nitrogen 25 mg/dL (7-20) Creatinine 0.5 mg/dL (0.6-1.0) Estimated GFR (Cockcroft-Gault) 123.8 Glucose Level 93 mg/dL (70-99) Calcium Level 8.6 mg/dL (8.5-10.1) Laboratory Tests Test 04/13/20 10:47 Sodium Level 146 mmol/L (136-145) Potassium Level 3.5 mmol/L (3.5-5.1) Chloride Level 110 mmol/L (98-107) Carbon Dioxide Level 28 mmol/L (21-32) Anion Gap 8 (6-14) Blood Urea Nitrogen 25 mg/dL (7-20) Creatinine 0.5 mg/dL (0.6-1.0) Estimated GFR (Cockcroft-Gault) 123.8 Glucose Level 93 mg/dL (70-99) Calcium Level 8.6 mg/dL (8.5-10.1) Microbiology 04/11/20 Blood Culture - Preliminary, Resulted NO GROWTH AFTER 2 DAYS Medications Current Medications Ondansetron HCl (Zofran) 4 mg 1X ONCE IVP Last administered on 2/4/21at 22:05; Start 04/10/20 at 21:45; Stop 04/10/20 at 21:46; Status DC Morphine Sulfate (Morphine Sulfate) 5 mg 1X ONCE IV Last administered on 04/10/20at 22:05; Start 04/10/20 at 21:45; Stop 04/10/20 at 21:46; Status DC Sodium Chloride 1,000 ml @ 0 mls/hr Q0M ONCE IV Last administered on 04/10/20at 22:04; Start 04/10/20 at 21:45; Stop 04/10/20 at 21:46; Status DC Iohexol (Omnipaque 240 Mg/ml) 30 ml 1X ONCE PO Last administered on 04/10/20at 23:25; Start 04/10/20 at 23:00; Stop 04/10/20 at 23:01; Status DC Iohexol (Omnipaque 300 Mg/ml) 75 ml 1X ONCE IV Last administered on 04/10/20at 23:25; Start 04/10/20 at 23:00; Stop 04/10/20 at 23:01; Status DC Info (CONTRAST GIVEN -- Rx MONITORING) 1 each PRN DAILY PRN MC SEE COMMENTS; Start 04/10/20 at 23:00; Stop 04/12/20 at 22:59; Status DC Morphine Sulfate (Morphine Sulfate) 5 mg 1X ONCE IV Last administered on 04/10/20at 23:37; Start 04/10/20 at 23:30; Stop 04/10/20 at 23:31; Status DC Piperacillin Sod/ Tazobactam Sod 3.375 gm/Sodium Chloride 50 ml @ 100 mls/hr 1X ONCE IV Last administered on 04/11/20at 00:44; Start 04/11/20 at 00:00; Stop 04/11/20 at 00:29; Status DC Ondansetron HCl (Zofran) 4 mg PRN Q8HRS PRN IV NAUSEA/VOMITING Last administered on 04/11/20at 14:02; Start 04/11/20 at 00:45; Stop 04/12/20 at 00:44; Status DC Sodium Chloride 1,000 ml @ 125 mls/hr Q8H IV Last administered on 04/11/20at 16:51; Start 04/11/20 at 00:45; Stop 04/12/20 at 00:44; Status DC Hydromorphone HCl (Dilaudid) 0.5 mg PRN Q4HRS PRN IVP SEVERE PAIN 7-10 Last administered on 04/12/20at 04:25; Start 04/11/20 at 00:45 Benzocaine (Hurricaine One) 1 spray 1X ONCE MM Last administered on 04/11/20at 00:53; Start 04/11/20 at 00:45; Stop 04/11/20 at 00:46; Status DC Benzocaine (Hurricaine One) 1 spray 1X ONCE MM Last administered on 04/11/20at 01:28; Start 04/11/20 at 01:30; Stop 04/11/20 at 01:31; Status DC Phenol (Chloraseptic) 1 spray PRN Q2HR PRN PO SORE THROAT Last administered on 04/11/20at 09:14; Start 04/11/20 at 03:15 Iohexol (Omnipaque 300 Mg/ml) 400 ml 1X ONCE PO ; Start 04/11/20 at 09:30; Stop 04/11/20 at 09:31; Status DC Sodium Chloride 1,000 ml @ 125 mls/hr Q8H IV Last administered on 04/13/20at 06:49; Start 04/12/20 at 03:15 Cefazolin Sodium/ Dextrose 50 ml @ 100 mls/hr 1X PREOP PRN IV PRIOR TO PROCEDURE; Start 04/13/20 at 06:00; Stop 04/13/20 at 18:00 Propofol (Diprivan) 200 mg STK-MED ONCE IV ; Start 04/12/20 at 10:06; Stop 04/12/20 at 10:06; Status DC Lidocaine HCl (Lidocaine Pf 2% Vial) 5 ml STK-MED ONCE .ROUTE ; Start 04/12/20 at 10:06; Stop 04/12/20 at 10:06; Status DC Dexamethasone Sodium Phosphate (Decadron) 20 mg STK-MED ONCE .ROUTE ; Start 04/12/20 at 10:06; Stop 04/12/20 at 10:06; Status DC Ondansetron HCl (Zofran) 4 mg STK-MED ONCE .ROUTE ; Start 04/12/20 at 10:06; Stop 04/12/20 at 10:06; Status DC Phenylephrine HCl (PHENYLEPHRINE in 0.9% NACL PF) 1 mg STK-MED ONCE IV ; Start 04/12/20 at 10:06; Stop 04/12/20 at 10:06; Status DC Ephedrine Sulfate (ePHEDrine PF IN SALINE SYRINGE) 50 mg STK-MED ONCE IV ; St art 04/12/20 at 10:06; Stop 04/12/20 at 10:06; Status DC Succinylcholine Chloride (Anectine) 200 mg STK-MED ONCE .ROUTE ; Start 04/12/20 at 10:07; Stop 04/12/20 at 10:07; Status DC Rocuronium [place] (Zemuron) 50 mg STK-MED ONCE .ROUTE ; Start 04/12/20 at 10:07; Stop 04/12/20 at 10:07; Status DC Fentanyl Citrate (Fentanyl 2ml Vial) 100 mcg STK-MED ONCE .ROUTE ; Start 04/12/20 at 10:07; Stop 04/12/20 at 10:08; Status DC Fentanyl Citrate (Fentanyl 2ml Vial) 25 mcg PRN Q5MIN PRN IVP MILD PAIN 1-3; Start 04/12/20 at 10:30; Stop 04/13/20 at 10:29; Status DC Fentanyl Citrate (Fentanyl 2ml Vial) 50 mcg PRN Q5MIN PRN IVP MODERATE PAIN 4- 6; Start 04/12/20 at 10:30; Stop 04/13/20 at 10:29; Status DC Morphine Sulfate (Morphine Sulfate) 1 mg PRN Q10MIN PRN IVP SEVERE PAIN 7-10; Start 04/12/20 at 10:30; Stop 04/13/20 at 10:29; Status DC Ringer's Solution 1,000 ml @ 30 mls/hr Q24H IV Last administered on 04/12/20at 12:38; Start 04/12/20 at 10:30; Stop 04/12/20 at 22:29; Status DC Hydromorphone HCl (Dilaudid) 0.5 mg PRN Q10MIN PRN IVP SEVERE PAIN 7-10, 2nd CHOICE; Start 04/12/20 at 10:30; Stop 04/13/20 at 10:29; Status DC Prochlorperazine Edisylate (Compazine) 5 mg PACU PRN PRN IVP NAUSEA, MRX1; Start 04/12/20 at 10:30; Stop 04/13/20 at 10:29; Status DC Bupivacaine HCl (Sensorcaine Mpf 0.5%) 30 ml STK-MED ONCE .ROUTE Last administered on 04/12/20at 11:36; Start 04/12/20 at 10:38; Stop 04/12/20 at 10:38; Status DC Cefazolin Sodium (Ancef) 1 gm STK-MED ONCE IVP ; Start 04/12/20 at 10:52; Stop 04/12/20 at 10:53; Status DC Sevoflurane (Ultane) 60 ml STK-MED ONCE IH ; Start 04/12/20 at 11:37; Stop 04/12/20 at 11:37; Status DC Glycopyrrolate (Robinul) 1 mg STK-MED ONCE .ROUTE ; Start 04/12/20 at 11:48; Stop 04/12/20 at 11:49; Status DC Neostigmine [place] (Neostigmine Methylsulfate) 5 mg STK-MED ONCE .ROUTE ; Start 04/12/20 at 11:49; Stop 04/12/20 at 11:49; Status DC Active Scripts Active Reported Alprazolam 0.25 Mg Tablet 1 Tab PO DAILY Pravastatin Sodium 40 Mg Tablet 1 Tab PO QHS Citalopram Hbr (Citalopram Hydrobromide) 20 Mg Tablet 1 Tab PO DAILY Ambien (Zolpidem Tartrate) 10 Mg Tablet 0.5 Tab PO PRN QHS PRN Meloxicam 15 Mg Tablet 1 Tab PO DAILY Vitals/I & O Vital Sign - Last 24 Hours 04/12/20 04/12/20 04/12/20 04/12/20 12:18 12:34 12:49 13:04 Pulse 74 67 68 64 Resp 20 20 20 20 B/P (MAP) 129/59 137/62 120/49 124/54 Pulse Ox 94 92 92 95 O2 Delivery Simple Mask Room Air Room Air Room Air O2 Flow Rate 10 04/12/20 04/12/20 04/12/20 04/12/20 13:14 13:42 14:00 14:15 Pulse 65 62 61 B/P (MAP) 122/50 (74) 129/60 (83) 127/61 (83) O2 Delivery Nasal Cannula O2 Flow Rate 2 04/12/20 04/12/20 04/12/20 04/12/20 14:30 15:00 15:30 16:00 Pulse 69 64 70 67 B/P (MAP) 120/62 (81) 121/58 (79) 125/60 (81) 117/55 (75) 04/12/20 04/12/20 04/12/20 04/12/20 17:00 19:00 19:55 23:10 Temp 100.2 100.3 100.2 100.3 Pulse 67 67 66 Resp 20 20 B/P (MAP) 113/51 (71) 113/52 (72) 120/61 (80) Pulse Ox 94 95 O2 Delivery Room Air Room Air Room Air 04/13/20 04/13/20 04/13/20 03:00 07:00 11:07 Temp 99.6 98.2 97.9 99.6 98.2 97.9 Pulse 64 62 85 Resp 20 20 20 B/P (MAP) 107/46 (66) 116/54 (74) 129/63 (85) Pulse Ox 92 96 97 O2 Delivery Room Air Room Air Room Air Intake and Output 04/12/20 04/12/20 04/13/20 15:00 23:00 07:00 Intake Total 550 ml 1000 ml 5423 ml Output Total 110 ml Balance 440 ml 1000 ml 5423 ml Justifications for Admission Other Justification CRIS HANSEN MD Apr 13, 2020 12:13
[2020-04-13 15:09] VITALS: BP 136/64
[2020-04-13 19:48] VITALS: BP 130/89
[2020-04-13] MEDS ORDERED: ACETAMINOPHEN 325 MG TABLET. PO PRN (22:15)
[2020-04-13 22:28] VITALS: BP 148/70
[2020-04-14 02:53] VITALS: BP 98/62
[2020-04-14] MEDS: IV NORMAL SALINE 1000ML BAG 1,000 ML IV SCH (06:57)
[2020-04-14 07:00] VITALS: BP 130/59
--- NOTE | 2020-04-14 09:17 | PDOC ---
CHARLEY UMAÑA FUN HOUSE OPERATOR 04/14/20 0917: SURGICAL PROGRESS NOTE DATE: 04/14/20 TIME: 09:11 Subjective tolerating clears no pain having stools wants to go home today Vital Signs Vital Signs Date Time Temp Pulse Resp B/P (MAP) Pulse Ox O2 Delivery O2 Flow Rate FiO2 04/14/20 07:00 98.0 57 17 130/59 (82) 96 Room Air 98.0 I&O Intake and Output 04/14/20 07:00 Intake Total 1300 ml Output Total 1103 ml Balance 197 ml Intake Oral 1300 ml Stool Total 3 ml Gastric Drainage Total 1100 ml # Voids 4 # Bowel Movements 1 General: Alert, Oriented X3, Cooperative Abdomen: Soft, No tenderness, Other (lap sites c/d/i) Labs Laboratory Tests Test 04/13/20 10:47 Sodium Level 146 mmol/L (136-145) Potassium Level 3.5 mmol/L (3.5-5.1) Chloride Level 110 mmol/L (98-107) Carbon Dioxide Level 28 mmol/L (21-32) Anion Gap 8 (6-14) Blood Urea Nitrogen 25 mg/dL (7-20) Creatinine 0.5 mg/dL (0.6-1.0) Estimated GFR (Cockcroft-Gault) 123.8 Glucose Level 93 mg/dL (70-99) Calcium Level 8.6 mg/dL (8.5-10.1) Laboratory Tests Test 04/13/20 10:47 Sodium Level 146 mmol/L (136-145) Potassium Level 3.5 mmol/L (3.5-5.1) Chloride Level 110 mmol/L (98-107) Carbon Dioxide Level 28 mmol/L (21-32) Anion Gap 8 (6-14) Blood Urea Nitrogen 25 mg/dL (7-20) Creatinine 0.5 mg/dL (0.6-1.0) Estimated GFR (Cockcroft-Gault) 123.8 Glucose Level 93 mg/dL (70-99) Calcium Level 8.6 mg/dL (8.5-10.1) Problem List Problems Medical Problems: (1) Small bowel obstruction Status: Acute Assessment/Plan advance diet for lunch if tolerates ok to dc FU 2 weeks Justicifation of Admission Dx: Justifications for Admission: Justification of Admission Dx: Yes Comments: CRIS JAMES MD 04/14/20 1026: SURGICAL PROGRESS NOTE Assessment/Plan Agree with above CHARLEY UMAÑA APRN Apr 14, 2020 09:17 CRIS HANSEN MD Apr 14, 2020 10:26
--- NOTE | 2020-04-14 09:30 | NUR ---
PATIENT ALERT AND VERBALLY RESPONSIVE, DENIES PAIN/DISCOMFORT AT THIS TIME, STERI STRIPS ON ABD. AREA CLEAN DRY AND INTACT. CONSUMED 100% OF CLEAR LIQUID BREAKFAST WITHOUT COMPLICATIONS, WILL ADVANCE TO A GI SOFT DIET AND IF SURGERY AGREES AND PATIENT TOLERATES DIET, WILL DISCHARGE TO HOME.
--- NOTE | 2020-04-14 10:07 | NUR ---
SW following. Discussed with RN, pt from home with , room air, clear liquid diet. Discharge order for home with self care after pt is seen by surgery team. RN advised no SW needs. SW will continue to follow.
[2020-04-14 11:00] VITALS: BP 153/71
--- NOTE | 2020-04-14 13:04 | DS ---
DATE OF DISCHARGE: 04/14/2020 PRIMARY DIAGNOSIS: Mechanical small-bowel obstruction. ADDITIONAL DIAGNOSES: History of breast cancer, osteoarthritis. CHIEF COMPLAINT AND HISTORY OF PRESENT ILLNESS: This 64-year-old white female admitted through the Emergency Room with abdominal pain, nausea and vomiting. She was found to have a small-bowel obstruction, admitted with NG tube placement. SUMMARY OF STAY: The patient was admitted and hydrated throughout the stay. Surgery was consulted. Serial KUB showed no improvement and was taken to surgery on 04/12/2020with lysis of adhesions and release of small-bowel obstruction. Postoperatively, she did well, was taking p.o. liquids, had return of bowel function, not having any significant pain and was felt that she could be dismissed. DISPOSITION: The patient is discharged to home. DIET: As tolerated. ACTIVITY: As tolerated with no lifting above 10 pounds. FOLLOWUP: Office followup in 1 week. DISCHARGE MEDICATIONS: Listed on the med rec and have been addressed. JESUS CASTILLO MD DR: LORRAINE/enirco JOB#: [id number] / [id number]
--- NOTE | 2020-04-14 13:10 | NUR ---
PATIENT TOLERATED A GI SOFT DIET WITHOUT COMPLICATIONS, WILL DISCHARGE TO HOME.
--- NOTE | 2020-04-14 14:00 | NUR ---
DISCHARGE INSTRUCTIONS GIVEN, QUESTIONS AND CONCERNS ANSWERED, PATIENT VERBALIZED UNDERSTANDING OF DISCHARGE INFORMATION, PATIENT AMBULATED IN THE HALLWAY PRIOR TO CONSUMING LUNCH. SALINE LOCK REMOVED FROM PATIENTS' RIGHT FOREARM PER MOP MAKER, BANDAGE APPLIED.
--- NOTE | 2020-04-14 14:16 | NUR ---
PATIENT LEAVES THE UNIT PER W/C AND ACCOMPANIED BY HER SPOUSE AND CATTLE DEALER ON THE UNIT, EMOTIONAL SUPPORT GIVEN AND FOLLOW UP APPOINTMENTS ENCOURAGED.
--- NOTE | 2020-06-27 14:56 | PDOC1 ---
History & Physical: Date of Service: DOS: 04-11-2020 H&P: PATIENT: JAYLEEN BOSS ACCOUNT: [id number] : 1955 LOC: [address] [place] [address] AGE: 64 SEX: F STATUS: ADM IN LOCATION: [address] [place] [address] ADMIT DATE: 04/11/2020 CHIEF COMPLAINT AND HISTORY OF PRESENT ILLNESS: This 64-year-old white female is well known to me from followup in the office. The patient developed abdominal pain on the morning of the . It was associated with nausea and vomiting. She eventually presented to the Emergency Room where she was found to have a high-grade small-bowel obstruction, admitted with NG tube placement. PAST MEDICAL HISTORY: Remarkable for prior breast cancer, arthritis and depression. PAST SURGICAL HISTORY: Remarkable for prior mastectomy and hysterectomy. MEDICATIONS: Brought with the patient, listed on computer and have been addressed. ALLERGIES: She has no known drug allergies. SOCIAL HISTORY: She is a lifetime nonsmoker, nondrinker, does not abuse drugs. , lives at home with her . FAMILY HISTORY: Noncontributory. REVIEW OF SYSTEMS: Remarkable for that as mentioned above. In addition, she has not had a bowel movement since this started. She denies any fevers, chills or hematemesis. PHYSICAL EXAMINATION: GENERAL: She is well-developed, well-nourished white female with NG in place and appears comfortable. She states she still has abdominal pain and has not passed any flatus or stool since admission. HEAD, EYES, EARS, NOSE AND THROAT: Unremarkable other than the NG tube. NECK: Supple without adenopathy or thyromegaly. CHEST: Clear to auscultation. HEART: Regular rate and rhythm without S3, S4 or murmur. ABDOMEN: Soft with some occasional rashes. EXTREMITIES: Without cyanosis, clubbing or edema. NEUROLOGIC: She is intact. LABORATORY DATA: Initial laboratory is remarkable for essentially normal CBC with a slight left shift. She had a blood sugar of 133 on her chem panel. Urinalysis is unremarkable. Rapid COVID testing is negative. IMAGING: Includes a KUB and abdominal pelvis CT showing small-bowel obstruction. IMPRESSION: 1. Small-bowel obstruction. 2. Other problems listed above. PLAN: Surgical consultation. We will observe at this point for hopefully spontaneous clearing of the same, but will need to be surgery available if needed a small bowel follow through ordered by Surgery this morning. We will be interesting to see what that shows. JESUS Schwartz. MD JONATHAN DR: LORRAINE/enrico JOB#: [id number] / [id number] DICTATED BY: JESUS CASTILLO MD 04/11/20 0928 SIGNED BY: JESUS CASTILLO MD 04/14/20 0729 cc: JESUS CASTILLO MD ~[id number] Page of JESUS CASTILLO MD Jun 27, 2020 14:56
== END 2020-04-14 14:16 | disposition home or self-care (01) | DRG 337 ==
LOC: ER 21:00 → 5 NORTH 04-11 00:24
PROVIDERS: ADMIT Family Medicine; ATTEND Family Medicine
PROC: 0D9670Z Drainage of Stomach with Drainage Device, Via Natural or Artificial Opening (ICD-10-PCS; 2020-04-11)
PROC: 0DN84ZZ Release Small Intestine, Percutaneous Endoscopic Approach (ICD-10-PCS; 2020-04-12)
PROC: 0DNU4ZZ Release Omentum, Percutaneous Endoscopic Approach (ICD-10-PCS; principal; 2020-04-12 10:08)
DX: K56.50 Intestinal adhesions [bands], unspecified as to partial versus complete obstruction (principal); Z85.3 Personal history of malignant neoplasm of breast; Z90.710 Acquired absence of both cervix and uterus; Z90.10 Acquired absence of unspecified breast and nipple; F32.9 Major depressive disorder, single episode, unspecified; F41.9 Anxiety disorder, unspecified; M19.90 Unspecified osteoarthritis, unspecified site; Z20.822 Contact with and (suspected) exposure to COVID-19; Z79.899 Other long term (current) drug therapy
CPT/HCPCS: 36415; 74018; 74177; 74250; 80048; 80053; 81001; 83605; 83690; 85007; 85025; 87040; 87426; 96365; 96375; G0238; J0330; J0690; J1100; J1170; J2270; J2370; J2405; J2543; J2704; J2710; J3010; J3490; J7030; J7120; Q9966; Q9967; U0003; 99285-25; G0378

== ENCOUNTER → 2021-02-25 | Outpatient (CLI) | payer MEDICARE ==
--- NOTE | 2021-02-26 11:03 | RAD ---
INDICATION: 65 years of age asymptomatic female patient presents for screening mammography. . TECHNIQUE: Full field craniocaudal and mediolateral oblique images of both breasts were obtained usi ng digital technique with tomosynthesis and also analyzed with computer-aided detection software. . COMPARISON: 02/25/2020 02/22/2019 .. BREAST COMPOSITION: Category B: There are scattered fibroglandular densities. FINDINGS: No suspicious masses, microcalcifications or architectural distortion is present to suggest malignanc y in either breast. The visualized axillae are unremarkable. IMPRESSION: Stable bilateral mammogram RECOMMENDATION: Annual screening mammography is recommended, unless clinically indicated sooner based on symptoms or change in physical exam. BIRADS 1: NEGATIVE This study was interpreted with the benefit of Computerized Aided Detection (CAD). Recommend follow-up exam in one year. Patient information is entered into the reminder system with a target due date for the next screening mammogram. Mammography is the most sensitive method for finding small breast cancers, but it does not detect the m all and is not a substitute for careful clinical examination. A negative mammogram does not negate a clinically suspicious finding and should not result in delay in biopsying a clinically suspicious a bnormality. "Our facility is accredited by the [employer] Mammography Program." Electronically signed by: Evan Iniguez MD (02/26/2021 11:01 AM) [id number]
== END ==
LOC: MAMMO 13:46
PROVIDERS: ATTEND Family Medicine
DX: Z12.31 Encounter for screening mammogram for malignant neoplasm of breast (principal)
CPT/HCPCS: 77063; 77067

== ENCOUNTER → 2021-07-08 | Outpatient (CLI) | payer MEDICARE ==
--- NOTE | 2021-07-08 16:49 | KCIC ---
EXAMINATION: Magnetic resonance imaging (MRI) of the lumbar spine without contrast 07/08/2021 2:10 PM HISTORY: Neurogenic claudication. Worsening low back pain to the bilateral hips. TECHNIQUE: Multiplanar multi-weighted MRI of the lumbar spine was performed without intravenous contr ast using the standard lumbar spine protocol. Contrast information: None administered. COMPARISON: MRI lumbar spine 03/26/2020 FINDINGS: Levoscoliosis of the lumbar spine centered at L2-L3. 2 mm retrolisthesis of T12 on L1. 4 mm retrolist hesis of L1 on L2. 2 mm retrolisthesis of L2 on L3. A millimeter anterolisthesis of L4 on L5. 1 mm an terolisthesis of L5 and S1. Vertebral bodies demonstrate normal signal intensity on all sequences. T here are no compression fractures. The conus medullaris terminates at the level of L1. The distal sp inal cord signal intensity is normal. Intervertebral disks have normal height and signal intensity. There are no annular fissures identified. Limited views of the abdomen and pelvis show no soft tissu e abnormality. The aorta is normal. T11-T12: Mild disc bulge. Mild facet arthropathy. Mild left neuroforaminal stenosis. Mild spinal katy l stenosis. T12-L1: There is mild disc bulge asymmetric to the left. Mild facet arthropathy. Mild left neuroforam inal stenosis. No significant spinal canal stenosis. L1-L2: There is a disc bulge. There is a central disc protrusion. Mild facet arthropathy. Moderate ri ght and mild left neuroforaminal stenosis. Mild spinal canal stenosis. Findings are stable. L2-L3: There is a circumferential disc bulge. Mild/moderate facet arthropathy. Severe bilateral neuro foraminal stenosis. Mild spinal canal stenosis. Findings are stable. L3-L4: There is a circumferential disc bulge with left foraminal disc protrusion. Moderate facet arth ropathy. Moderate bilateral neuroforaminal stenosis. Mild spinal canal stenosis. Findings are stable. L4-L5: There is a circumferential disc bulge. Severe facet arthropathy. Moderate severe bilateral gianluca roforaminal stenosis. Moderate right lateral recess stenosis. Mild to moderate spinal canal stenosis. Findings are stable. L5-S1: Mild disc bulge. Severe left and moderate right facet arthropathy. Mild left neuroforaminal st enosis. No spinal canal stenosis. Findings are stable. IMPRESSION: There is improved disc signal at L1-L2 as compared to prior examination from 03/26/2020. Moderate to a dvanced lumbar spondylosis significant change since the prior examination. Electronically signed by: Octavia Albright MD (07/08/2021 4:47 PM) SIVAN
== END ==
LOC: KCIC MRI 13:57
PROVIDERS: ATTEND Family Medicine
DX: M47.816 Spondylosis without myelopathy or radiculopathy, lumbar region (principal); M51.27 Other intervertebral disc displacement, lumbosacral region; M48.07 Spinal stenosis, lumbosacral region; M48.8X7 Other specified spondylopathies, lumbosacral region; M43.15 Spondylolisthesis, thoracolumbar region; M43.17 Spondylolisthesis, lumbosacral region; G95.19 Other vascular myelopathies
CPT/HCPCS: 72148